=== PATIENT | male | born 1955 | race Caucasian/White ===

== ENCOUNTER 2017-04-05 18:43 | Emergency (ER) | payer MEDICAID ==
[2017-04-05 18:59] VITALS: BP 169/95; PULSE 78; RESP 16; TEMP 98.6; O2SAT 93
[2017-04-05] MEDS ORDERED: DIAZEPAM 5 MG TAB PO ONE (19:07)
--- NOTE | 2017-04-05 19:11 | EDPHY ---
H & P Stated Complaint: can only sleep 2-3 hours x 2 weeks. Time Seen by Provider: 04/05/17 19:02 HPI/ROS: CHIEF COMPLAINT: Insomnia HISTORY OF PRESENT ILLNESS: Patient is a 62-year-old man with unspecified mental health disorder who comes to the emergency department stating that he has not slept well for the last 3 days. He is requesting medication to help him sleep. At 1 point he has to take lithium but has not for several years. He denies depression or suicidality. He is not sure if he has been diagnosed with bipolar. He is not feel manic. It is not have racing thoughts. He denies recent drug or alcohol use. REVIEW OF SYSTEMS: Constitutional: denies: chills, fever, recent illness, recent injury EENTM: denies: blurred vision, double vision, nose congestion Respiratory: denies: cough, shortness of breath Cardiac: denies: chest pain, irregular heart rate, lightheadedness, palpitations Gastrointestinal/Abdominal: denies: abdominal pain, diarrhea, nausea, vomiting, blood streaked stools Genitourinary: denies: dysuria, frequency, hematuria, pain Musculoskeletal: denies: joint pain, muscle pain Skin: denies: lesions, rash, jaundice, bruising Neurological: denies: headache, numbness, paresthesia, tingling, dizziness, weakness Hematologic/Lymphatic: denies: blood clots, easy bleeding, easy bruising Immunologic/allergic: denies: HIV/AIDS, transplant EXAM: GENERAL: Well-appearing, well-nourished and in no acute distress. HEAD: Atraumatic, normocephalic. EYES: Pupils equal round and reactive to light, extraocular movements intact, sclera anicteric, conjunctiva are normal. ENT: TMs normal, nares patent, oropharynx clear without exudates. Moist mucous membranes. NECK: Normal range of motion, supple without lymphadenopathy or JVD. LUNGS: Breath sounds clear to auscultation bilaterally and equal. No wheezes rales or rhonchi. HEART: Regular rate and rhythm without murmurs, rubs or gallops. ABDOMEN: Soft, nontender, normoactive bowel sounds. No guarding, no rebound. No masses appreciated. BACK: No CVA tenderness, no spinal tenderness, step-offs or deformities EXTREMITIES: Normal range of motion, no pitting or edema. No clubbing or cyanosis. NEUROLOGICAL: Cranial nerves II through XII grossly intact. Normal speech, normal gait. 5/5 strength, normal movement in all extremities, normal sensation PSYCH: Frustrated, oriented SKIN: Warm, dry, normal turgor, no visible rashes or lesions. Source: Patient Exam Limitations: No limitations - Personal History Current Tetanus Diphtheria and Acellular Pertussis (TDAP): Yes Tetanus Vaccine Date: 2012 - Medical/Surgical History Hx Asthma: No Hx Chronic Respiratory Disease: No Hx Diabetes: No Hx Cardiac Disease: No Hx Renal Disease: No Hx Cirrhosis: No Hx Alcoholism: No Hx HIV/AIDS: No Hx Splenectomy or Spleen Trauma: No Other PMH: HX: SCHIZOPHERNIA, KNEE AND BACK SURGERY, COCAINE ADDICTION-SOBER PER PT SINCE 2012, GOUT - Family History Significant Family History: No pertinent family hx - Social History Smoking Status: Current every day smoker Alcohol Use: Sober Drug Use: None Constitutional: Initial Vital Signs Temperature (C) 37 C 04/05/17 18:57 Heart Rate 78 04/05/17 18:57 Respiratory Rate 16 04/05/17 18:57 Blood Pressure 169/95 H 04/05/17 18:57 O2 Sat (%) 93 04/05/17 18:57 O2 Delivery Mode Room Air Allergies/Adverse Reactions: propoxyphene HCl [From Darvon] Allergy (Verified 04/05/17 18:56) Home Medications: Medication Instructions Recorded Some Antibiotic? 04/05/17 Medical Decision Making ED Course/Re-evaluation: I will give the patient a dose of Valium to take at home tonight. I do feel that he would benefit greatly from a good night sleep. He will not take it with alcohol. He will then follow up with [facility] tomorrow. I also recommended the [facility] but he states that he does not want to drive all the way to [place]. Differential Diagnosis: Partial list of the Differential diagnosis considered include but were not limited to; insomnia, carla, schizophrenia, and although unlikely based on the history and physical exam, I also considered substance abuse, infection, head injury. I discussed these differential diagnoses and the plan with the patient as well as the usual and expected course. The patient understands that the diagnosis is provisional and that in medicine we are not always correct and that further workup is often warranted. Usual and customary warnings were given. All of the patient's questions were answered. The patient was instructed to return to the emergency department should the symptoms at all worsen or return, otherwise to followup with the physician as we discussed. Departure - Departure Disposition: Home, Routine, Self-Care Clinical Impression: Insomnia Qualifiers: Insomnia type: due to other mental disorder Qualified Code(s): F51.05 - Insomnia due to other mental disorder; F99 - Mental disorder, not otherwise specified Condition: Fair Instructions: Insomnia (ED) Referrals: ALEX ALMARAZ,Kathie [Primary Care Provider] - 1 day without fail
== END 2017-04-05 19:25 | disposition home or self-care (01) ==
LOC: CED 18:43
DX: F51.05 Insomnia due to other mental disorder (principal); F99 Mental disorder, not otherwise specified; F17.200 Nicotine dependence, unspecified, uncomplicated

== ENCOUNTER 2017-04-11 11:47 | Emergency (ER) | payer MEDICAID ==
[2017-04-11 12:03] VITALS: TEMP 98.4
[2017-04-11] MEDS ORDERED: NS 1,000 ML IV ONE (12:29)
--- NOTE | 2017-04-11 12:55 | CPEKG ---
Heart Rate: 92 RR Interval: 652 P-R Interval: 152 QRSD Interval: 92 QT Interval: 372 QTC Interval: 461 P Ola: 61 QRS Ola: 69 T Wave Ola: 39 EKG Severity - NORMAL ECG - EKG Impression: SINUS RHYTHM Electronically Signed By: Himanshu Blair 11-Apr-2017 14:47:25
[2017-04-11 13:03] LABS: % IMMATURE GRANULYOCYTES 0.4 % (0.0-1.1); ABSOLUTE IMMATURE GRANULOCYTES 0.02 10^3/uL (0.00-0.10); ADD DIFF? NO; ADD MORPH? NO; ADD SCAN? NO; ATYPICAL LYMPHOCYTE FLAG 30 (0-99); FRAGMENT RBC FLAG 0 (0-99); HEMATOCRIT 36.5 % (40.0-51.0); HEMOGLOBIN 12.6 g/dL (13.7-17.5); LEFT SHIFT FLG 0 (0-99); LIPEMIA HEMOLYSIS FLAG 90 (0-99); MEAN CELL HEMOGLOBIN 31.2 pg (27.9-34.1); MEAN CELL HEMOGLOBIN CONCENTR. 34.5 g/dL (32.4-36.7); MEAN CELL VOLUME 90.3 fL (81.5-99.8); MEAN PLATELET VOLUME 8.8 fL (8.7-11.7); PLATELET CLUMPS FLAG 0 (0-99); PLATELET COUNT 251 10^3/uL (150-400); RED BLOOD CELL COUNT 4.04 10^6/uL (4.40-6.38); RED CELL DISTRIBUTION WIDTH 13.4 % (11.5-15.2)
[2017-04-11 13:20] LABS: COLOR YELLOW; LEUKOCYTE ESTERASE,URINE NEGATIVE (NEGATIVE); NITRITE,URINE NEGATIVE (NEGATIVE); PH,URINE 6.5 (5.0-7.5)
[2017-04-11 13:21] LABS: ALANINE AMINOTRANSFERASE 77 IU/L (21-72); ALBUMIN 3.8 g/dL (3.5-5.0); ALKALINE PHOSPHATASE 61 IU/L (38-126); ANION GAP 10 mEq/L (8-16); ASPARTATE AMINOTRANSFERASE 59 IU/L (17-59); BILIRUBIN,TOTAL 0.6 mg/dL (0.1-1.4); CALCIUM 9.2 mg/dL (8.5-10.4); CARBON DIOXIDE 24 mEq/l (22-31); CHLORIDE 105 mEq/L (97-110); CREATININE 0.8 mg/dL (0.7-1.3); GLOMERULAR FILTRATION RATE > 60; GLUCOSE 103 mg/dL (70-100); POTASSIUM 4.2 mEq/L (3.5-5.2); SODIUM 139 mEq/L (134-144); TOTAL PROTEIN 6.7 g/dL (6.3-8.2)
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
[2017-04-11 13:56] VITALS: BP 118/78; PULSE 88; RESP 18; O2SAT 95
[2017-04-11 16:10] LABS: LITHIUM 1.1 mEq/L (0.6-1.2)
== END 2017-04-11 13:56 | disposition home or self-care (01) ==
LOC: CED 11:47
DX: R11.0 Nausea (principal); E86.9 Volume depletion, unspecified; F17.200 Nicotine dependence, unspecified, uncomplicated
CPT/HCPCS: 80053-PO; 81003-PO; 84443-PO; 85025-PO

== ENCOUNTER 2017-04-11 16:51 | Emergency (ER) | payer MEDICAID ==
[2017-04-11] MEDS ORDERED: IBUPROFEN 600 MG TAB PO ONE (17:06)
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
[2017-04-11 17:09] VITALS: BP 152/89; PULSE 96; RESP 16; TEMP 98.8; O2SAT 93
== END 2017-04-11 17:45 | disposition home or self-care (01) ==
LOC: CED 16:51
DX: S90.112A Contusion of left great toe without damage to nail, initial encounter (principal); F17.200 Nicotine dependence, unspecified, uncomplicated; V18.0XXA Pedal cycle driver injured in noncollision transport accident in nontraffic accident, initial encounter; Y92.89 Other specified places as the place of occurrence of the external cause; Y99.8 Other external cause status; Y93.55 Activity, bike riding
CPT/HCPCS: 73660-PO

== ENCOUNTER 2017-04-11 23:25 | Emergency (ER) | payer MEDICAID ==
[2017-04-11 23:31] VITALS: BP 158/87; PULSE 80; RESP 16; TEMP 98.2; O2SAT 97
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
[2017-04-12] MEDS ORDERED: LORAZEPAM 1 MG PREPACK#4 BTL TAKEHOME ONE (00:27)
== END 2017-04-12 00:42 | disposition home or self-care (01) ==
LOC: CED 23:25
DX: F20.9 Schizophrenia, unspecified (principal); F17.200 Nicotine dependence, unspecified, uncomplicated

== ENCOUNTER 2017-04-12 07:59 | Emergency (ER) | payer MEDICAID ==
[2017-04-12] MEDS ORDERED: ZIPRASIDONE MESYLATE 20 MG VIAL IM ONE (08:42)
--- NOTE | 2017-04-12 08:47 | EDPHY ---
H & P Stated Complaint: PT reports "not feeling right", states he "feels like he is being watched" Time Seen by Provider: 04/12/17 08:08 HPI/ROS: This patient is here for his 4th visit within the past 24 hours or so with increasing agitation with a history of schizophrenia. He complains that he is "shaky and not feeling well." He is compliant with his lithium with a therapeutic level yesterday of 1.1. Despite this he is becoming increasingly agitated. He was prescribed lorazepam last night visit here with Dr. Pinto, but he refuses to take Ativan. This morning he is more agitated. He brought a piece of metal that he found in the street and has delusions about the item pertaining to his ultimate fate & density. He is cursing and here this morning with mild motor agitation but is cooperative when reminded. He explains that he does not feel right. He reports that he uses marijuana to help slow him down , but admits that it is not working for for that purpose. ROS: No fevers no other constitutional symptoms HEENT: No complaints Pulmonary: No complaints cardiovascular: No complaints GI: No nausea this morning. Integumentary: No complaints Psychiatric: The patient only slept 3 hours last night. He arrived without his phone or wallet. Neuro: No symptoms 10 point ROS is otherwise negative. Source: Patient Exam Limitations: Clinical condition (Psychotic symptoms) - Personal History Current Tetanus Diphtheria and Acellular Pertussis (TDAP): Yes Tetanus Vaccine Date: 2012 - Medical/Surgical History PMH: Schizophrenia Hx Asthma: No Hx Chronic Respiratory Disease: No Hx Diabetes: No Hx Cardiac Disease: No Hx Renal Disease: No Hx Cirrhosis: No Hx Alcoholism: No Hx HIV/AIDS: No Hx Splenectomy or Spleen Trauma: No Other PMH: HX: SCHIZOPHERNIA, KNEE AND BACK SURGERY, COCAINE ADDICTION-SOBER PER PT SINCE 2012, GOUT - Social History Smoking Status: Heavy smoker Alcohol Use: None Drug Use: Marijuana (Daily) - Physical Exam Exam: General Appearance: Alert, no distress. Eyes: Pupils equal and round no pallor or injection. ENT, Mouth: Mucous membranes moist. Respiratory: There are no retractions, lungs are clear to auscultation. Cardiovascular: Regular rate and rhythm. Neurological: Alert with no focal deficits Skin: Warm and dry, no rashes. Musculoskeletal: Neck is supple nontender. Extremities are symmetrical, full range of motion. Psychiatric: Patient is agitated. He is cursing. He has flight of ideas this morning. He has paranoia with the idea of people are watching him. He denies any suicidal ideation or homicidal ideation. He does have some insight into his increasing agitation and says that he will accept a 2nd medication on top of the lithium to help with symptoms DIFFERENTIAL DIAGNOSIS: After history and physical exam differential diagnosis was considered for schizophrenia with exacerbation, potential relapse of cocaine use, marijuana abuse, agitated delirium Constitutional: Initial Vital Signs Temperature (C) 36.9 C 04/12/17 08:06 Heart Rate 88 04/12/17 08:06 Respiratory Rate 18 04/12/17 08:06 Blood Pressure 148/82 H 04/12/17 08:06 O2 Sat (%) 95 04/12/17 08:06 O2 Delivery Mode Room Air Allergies/Adverse Reactions: propoxyphene HCl [From Darvon] Allergy (Verified 04/12/17 08:10) Home Medications: Medication Instructions Recorded [place] Carbonate 04/11/17 Haloperidol [Haldol 5 MG (*)] 5 mg PO TID #100 tab 04/12/17 LORazepam [Ativan] 04/12/17 Medical Decision Making ED Course/Re-evaluation: I explained my concern about his escalating psychotic symptoms and recommended additional medication. He initially refused this and we called for police presence due do increasing agitation. Shortly after initially declining medication & requesting that I speak with family 1st (I called 3 contacts that he requested and left messages, but was unable to reach his niece, Aurelia - , his brother Renato - [phone], or Franco, or his ex- . I explained that I was unable to reach family and he then agrees to accept an additional medication. He agrees to have a dose of Geodon IM. 20 mg of Geodon is administered IM. Patient responds well to this. Within 10- 15 minutes he reports that he "can feel medication working." He agrees to start Haldol orally. He has an appointment to see [facility] and. He is appreciative of the medication dose and thanks us for caring for him. He then fell asleep. After sleeping for approximately an hour he awakens, is pleasant and cooperative, agrees to start Haldol 5 mg 3 times a day and to follow-up tomorrow with Alex Salomon. I spoke with police officers at 9:25 a.m. explaining the patient de escalated and is agreeable to appropriate treatment. I spoke with Dr. Lange, Alex [facility]onso on-call doc regarding the patient' s status of increasing symptoms with history of schizophrenia, compliant on the lithium but the started 6 days ago with plan to start Haldol in addition with close follow-up tomorrow. (and will pass on the information to the treating clinician he sees him tomorrow at [facility]. We also paged psychiatry on-call ([facility]) but have not heard back Discussion: Patient with history of schizophrenia with increasing symptoms and agitation the but not quite to the level of an M1 hold. Fortunately he accepted additional antipsychotic medication & responded well. - Data Points Medications Given: Discontinued Medications Ziprasidone (Geodon) 20 mg IM EDNOW ONE Stop: 04/12/17 08:43 Last Admin: 04/12/17 08:55 Dose: 20 mg Departure - Departure Disposition: Home, Routine, Self-Care Clinical Impression: Agitation Condition: Good Instructions: Schizophrenia (ED) Additional Instructions: Diagnosis: agitation Plan: Continue your lip p.m. at the current dose. Add Haldol 5 mg 3 times a day. [facility]. Go to the emergency department for any significant worsening despite the treatment plan Referrals: ALEX ALMARAZ,. [Primary Care Provider] - As per Instructions Prescriptions: Haloperidol [Haldol 5 MG (*)] 5 mg PO TID #100 tab
[2017-04-12 09:45] VITALS: BP 144/87; PULSE 78; RESP 16; TEMP 98.6; O2SAT 96
== END 2017-04-12 09:45 | disposition home or self-care (01) ==
LOC: CED 07:59
DX: R45.1 Restlessness and agitation (principal); F17.200 Nicotine dependence, unspecified, uncomplicated
CPT/HCPCS: J3486

== ENCOUNTER 2017-04-12 15:31 | Emergency (ER) | payer MEDICAID ==
[2017-04-12 15:44] VITALS: BP 138/100; PULSE 100; RESP 16; TEMP 98.6; O2SAT 95
--- NOTE | 2017-04-12 15:58 | EDPHY ---
General Time Seen by Provider: 04/12/17 15:52 Narrative: Patient left the emergency department before I could see and evaluate him. Because we were concerned about his mental status and agitation police were notified. - History Smoking Status: Heavy smoker - Objective Vital Signs: Initial Vital Signs Temperature (C) 37 C 04/12/17 15:42 Heart Rate 100 04/12/17 15:42 Respiratory Rate 16 04/12/17 15:42 Blood Pressure 138/100 H 04/12/17 15:42 O2 Sat (%) 95 04/12/17 15:42 O2 Delivery Mode Room Air Allergies/Adverse Reactions: propoxyphene HCl [From Darvon] Allergy (Verified 04/12/17 15:44) Home Medications: Medication Instructions Recorded [place] Carbonate 04/11/17 Haloperidol [Haldol 5 MG (*)] 5 mg PO TID #100 tab 04/12/17 LORazepam [Ativan] 04/12/17 Departure - Departure Referrals: ALEX ALMARAZ,Kathie [Primary Care Provider] - As per Instructions
== END 2017-04-12 15:57 | disposition left against medical advice (07) ==
LOC: CED 15:31
DX: Z53.21 Procedure and treatment not carried out due to patient leaving prior to being seen by health care provider (principal)

== ENCOUNTER 2017-04-12 17:15 | Emergency (ER) | payer MEDICAID ==
[2017-04-12 17:31] VITALS: BP 157/94; PULSE 113; TEMP 99
[2017-04-12] MEDS ORDERED: ZIPRASIDONE MESYLATE 20 MG VIAL IM PRN (17:31)
[2017-04-12 17:48] VITALS: RESP 18; O2SAT 97
--- NOTE | 2017-04-12 17:58 | EDPHY ---
H & P Stated Complaint: labile thoghts . states here " feels like he is overheated" Time Seen by Provider: 04/12/17 17:19 HPI/ROS: CHIEF COMPLAINT: "I need to drink water and to get cool" History by patient HISTORY OF PRESENT ILLNESS: 62-year-old male with a history of schizophrenia or bipolar disease who is on lithium presents for his 6th visit in 2 days to this facility. Patient was here approximately 2 hours ago but left without being seen. He returns very agitated stating he just needs to cool down and have some water. 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 Patient is denying suicidal ideation or audio or visual hallucinations. He is denying any drug use other than marijuana. REVIEW OF SYSTEMS: Unobtainable due the patient's agitation Source: Patient - Personal History Current Tetanus Diphtheria and Acellular Pertussis (TDAP): Yes Tetanus Vaccine Date: 2012 - Medical/Surgical History Hx Asthma: No Hx Chronic Respiratory Disease: No Hx Diabetes: No Hx Cardiac Disease: No Hx Renal Disease: No Hx Cirrhosis: No Hx Alcoholism: No Hx HIV/AIDS: No Hx Splenectomy or Spleen Trauma: No Other PMH: HX: SCHIZOPHERNIA, KNEE AND BACK SURGERY, COCAINE ADDICTION-SOBER PER PT SINCE 2012, GOUT - Social History Smoking Status: Heavy smoker - Physical Exam Exam: General Appearance: Alert, agitated. Eyes: Pupils equal and round no pallor or injection. ENT, Mouth: Mucous membranes moist. Respiratory: Normal, effort, There are no retractions, lungs are clear to auscultation. Cardiovascular: Regular rate and rhythm. Gastrointestinal: Abdomen is soft and nontender, no masses, bowel sounds normal. Neurological: Awake, alert and oriented x 3, no pronator drift, normal gait, no pronator drift Skin: Warm and dry, no rashes. Musculoskeletal: Neck is supple nontender. Extremities are symmetrical, full range of motion. 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 and that people are after him, no suicidal or homicidal ideation, no hallucinations Constitutional: Initial Vital Signs Temperature (C) 37.2 C 04/12/17 17:28 Heart Rate 113 H 04/12/17 17:28 Respiratory Rate 16 04/12/17 17:28 Blood Pressure 157/94 H 04/12/17 17:28 O2 Sat (%) 94 04/12/17 17:28 O2 Delivery Mode Room Air Allergies/Adverse Reactions: propoxyphene HCl [From Darvon] Allergy (Verified 04/12/17 15:44) Home Medications: Medication Instructions Recorded [place] Carbonate 04/11/17 Haloperidol [Haldol 5 MG (*)] 5 mg PO TID #100 tab 04/12/17 LORazepam [Ativan] 04/12/17 Medical Decision Making ED Course/Re-evaluation: 62-year-old man psychiatric history presents agitated and delusional after several escalating assisted emerged from under the past 48 hours. Patient was seen earlier today and I reviewed those records he was given a dose of Geodon at that time and slept, was not felt to be candidate for mental health hold and discharged however here the patient is clearly delusional, uncooperative and gravely disabled. Patient attempted to pull out a marijuana pipe and smoking in the ED in front of the police. My plan was to put the patient on a mental health hold, however the police stated they would put him on a hold and take him to [facility]. I discussed the case with Dr. Cherry at [facility] who accepted the patient transfer. The patient did agree to a dose of Geodon 20 mg IM prior to transfer which he was given. - Data Points Medications Given: Discontinued Medications Ziprasidone (Geodon) 20 mg IM Q4HRS PRN PRN Reason: Agitation Stop: 10/09/17 17:30 Last Admin: 04/12/17 17:40 Dose: 20 mg Departure - Departure Disposition: Acute Care Hospital Not [facility] Clinical Impression: Acute psychosis, Schizophrenia, paranoid, chronic with acute exacerbation Condition: Fair Referrals: ALEX ALMARAZ,. [Primary Care Provider] - As per Instructions
== END 2017-04-12 17:45 | disposition short-term general hospital (02) ==
LOC: CED 17:15
DX: F20.0 Paranoid schizophrenia (principal); F17.200 Nicotine dependence, unspecified, uncomplicated
CPT/HCPCS: J3486

== ENCOUNTER 2017-05-07 01:14 | Emergency (ER) | payer MEDICAID ==
[2017-05-07 01:34] VITALS: BP 131/93; PULSE 107; RESP 20; TEMP 98.6; O2SAT 94
[2017-05-07] MEDS ORDERED: HYDROCODONE/APAP 5/325 TAB PO ONE (01:43)
--- NOTE | 2017-05-07 01:50 | EDPHY ---
H & P Time Seen by Provider: 05/07/17 01:22 HPI/ROS: CC: Pain HPI: This 62 y/o male with PMH including bipolar disorder and schizophrenia presents to the ED stating that when he was discharged from [facility] yesterday afternoon they forgot to prescribe him pain medication. Now he can't sleep. He is not very specific as to where his pain is but he states he walks a lot and his feet ache. He brings a folder with all his paperwork from his discharge and it lists an appointment with [facility] at [address] [place] [address] at 9:00am today. The patient seems quite agitated at arrival. He states he has taken all the medications listed on his discharge as direction (Zyprexa, Cogentin, [place], Seroquel). Although he states he is having trouble sleeping, he is drinking a large cup of coffee. He denies other complaints. Past Medical/Surgical History: PMH: Bipolar disordoer, type II; Manic with Psychosis and Anxiety/Severe; Schizophrenia; cannabis use disorder Allergies: Propoxyphene Medications (per printed list from discharge summary from [facility]): Zyprexa Zydis 10 mg 9:00 a.m. Zyprexa Zydis 20 mg at 9:00 p.m. Cogentin 1 mg twice a day [place] carbonate 600 mg twice a day Seroquel XR 400 mg at bedtime Social History: Lives with a friend; States and kids live in [place]; +Tobacco; Denies ETOH; h/o cannabis use d/o; Works in construction. Smoking Status: Heavy smoker Physical Exam: General: Alert and Oriented x 3; agitated; adequately groomed and dressed EXAM LIMITED BY PATIENT DOES NOT WANT TO BE TOUCHED Skin: normal for ethnicity; dry; non-diaphoretic HEENT: Normocephalic, atraumatic, pupils equally round and reactive, extraocular muscles intact, mucosa moist Neck: Supple, full range of motion without difficulty Cardiovascular: Normal peripheral perfusion Pulmonary: Nonlabored respirations Extremities: No clubbing, cyanosis or edema; has heavy work boots on and will not take them off for exam Neuro: Nonfocal Psych: Agitated at times and slightly pressured speech; Able to be redirected Constitutional: Initial Vital Signs Temperature (C) 98.6 F 05/07/17 01:25 Heart Rate 107 H 05/07/17 01:25 Respiratory Rate 20 05/07/17 01:25 Blood Pressure 131/93 H 05/07/17 01:25 O2 Sat (%) 94 05/07/17 01:25 O2 Delivery Mode Room Air Allergies/Adverse Reactions: propoxyphene HCl [From Darvon] Allergy (Verified 05/07/17 01:25) Home Medications: Medication Instructions Recorded [place] Carbonate 04/11/17 Cogentin 05/07/17 Seroquel 05/07/17 Zyprexa 05/07/17 Medical Decision Making ED Course/Re-evaluation: The patient was seen and examined, vital signs reviewed. Discharge paperwork from his discharge yesterday from [facility] were reviewed. Prior [facility] records reviewed. He requested something to eat. We gave him Cisco crackers, peanut butter and whole milk at his request. He was much more calm after eating. He was cooperative and was able to be redirected off of topics that agitated him. He was advised that we do not prescribe narcotic pain medications for chronic pain and if he felt this was an oversight at his discharge that he should talk to the physician he is going to see this morning. We agreed that we would give him 2 tablets of [place] that he will take after he gets home as he is driving/walking. He is satisfied with this plan. As stated previously the patient was discharged at about noon yesterday from [facility]. He states he is taking his medications as prescribed. I believe his psychiatric condition is at baseline at this time. Differential Diagnosis: Differential diagnosis includes but is not limited to chronic pain, narcotic seeking, bipolar disorder, psychosis, injury or infection. - Data Points Medications Given: Discontinued Medications Hydrocodone Bitart/Acetaminophen ([place] 5/325) 2 tab PO EDNOW ONE Stop: 05/07/17 01:44 Last Admin: 05/07/17 01:49 Dose: 2 tab Departure - Departure Disposition: Home, Routine, Self-Care Clinical Impression: Chronic pain, History of bipolar disorder, History of psychiatric disorder Condition: Good Instructions: Chronic Pain (ED) Additional Instructions: If you feel you need chronic pain medications, please discuss this with your primary care providers. We do not prescribe chronic narcotic pain medications from the Emergency Department. Please keep your appointment with your mental health provider tomorrow (your discharge papers from [facility] state you have an appointment at [facility] at [address] [facility] in [place] at 9a.m.). Feel free to return to the ED if you have any medical or psychiatric conditions that we can help you with. Referrals: Patient,NotPresent [Primary Care Provider] - As per Instructions
== END 2017-05-07 02:35 | disposition home or self-care (01) ==
LOC: CED 01:14
DX: G89.29 Other chronic pain (principal); F17.200 Nicotine dependence, unspecified, uncomplicated; Z86.59 Personal history of other mental and behavioral disorders

== ENCOUNTER 2017-05-07 08:34 | Emergency (ER) | payer MEDICAID | END 2017-05-07 08:35 | disposition left against medical advice (07) | LOC: CED 08:34 | DX: Z53.21 Procedure and treatment not carried out due to patient leaving prior to being seen by health care provider (principal) ==

== ENCOUNTER 2017-05-07 14:28 | Emergency (ER) | payer MEDICAID ==
[2017-05-07 14:39] VITALS: BP 127/90; PULSE 76; RESP 18; TEMP 97.7; O2SAT 98
--- NOTE | 2017-05-07 14:46 | EDPHY ---
PA Addendum - Addendum .: This patient left the emergency department before completing evaluation.
== END 2017-05-07 14:48 | disposition left against medical advice (07) ==
LOC: CED 14:28
DX: Z53.21 Procedure and treatment not carried out due to patient leaving prior to being seen by health care provider (principal)

== ENCOUNTER 2017-05-09 06:49 | Emergency (ER) | payer MEDICAID ==
[2017-05-09 06:56] VITALS: BP 139/85; PULSE 77; RESP 16; TEMP 97.5; O2SAT 92
[2017-05-09] MEDS ORDERED: IBUPROFEN 600 MG TAB PO ONE (07:00)
--- NOTE | 2017-05-09 07:00 | EDPHY ---
H & P Time Seen by Provider: 05/09/17 06:53 HPI/ROS: CHIEF COMPLAINT: Toe pain HISTORY OF PRESENT ILLNESS: Patient was wearing boots which rubbed 1 of his toes and caused a blister which is now popped. He said it is very painful when he is wearing shoes. REVIEW OF SYSTEMS: No fever PAST MEDICAL HISTORY: Medical consultation dated 04/08/2014 personally reviewed. Includes sciatica, back and knee surgeries, hepatitis-C. Schizophrenia. Social history: Smoker. General Appearance: Alert and conversant, cooperative. The patient has a blister on his left middle toe over the proximal joint which has popped. There is no fluctuance or eschar. There is no surrounding redness or proximal lymphangitis. The patient has normal motor and sensory in the foot. The plantar surface is intact. Emergency Department course/MDM: Patient has a blister which is causing him pain when it rubs against his shoe. Antibiotic ointment and a Band-Aid were applied. I don't think it's likely that he has superficial or deep space infection. Smoking Status: Heavy smoker Constitutional: Initial Vital Signs Temperature (C) 36.4 C 05/09/17 06:50 Heart Rate 77 05/09/17 06:50 Respiratory Rate 16 05/09/17 06:50 Blood Pressure 139/85 H 05/09/17 06:50 O2 Sat (%) 92 05/09/17 06:50 O2 Delivery Mode Room Air Allergies/Adverse Reactions: propoxyphene HCl [From Darvon] Allergy (Verified 05/09/17 06:56) Home Medications: Medication Instructions Recorded NK [No Known Home Meds] 05/09/17 MDM/Departure - MDM Medications Given: Discontinued Medications Ibuprofen (Motrin) 600 mg PO EDNOW ONE Stop: 05/09/17 07:01 Last Admin: 05/09/17 07:04 Dose: 600 mg - Depart Disposition: Home, Routine, Self-Care Clinical Impression: blister left middle toe Condition: Good Instructions: Acute Wounds (ED) Referrals: ALEX ALMARAZ,. [Primary Care Provider] - As per Instructions
== END 2017-05-09 07:04 | disposition home or self-care (01) ==
LOC: CED 06:49
DX: R23.8 Other skin changes (principal); F17.200 Nicotine dependence, unspecified, uncomplicated

== ENCOUNTER 2017-05-11 11:47 | Emergency (ER) | payer MEDICAID | END 2017-05-11 12:04 | disposition left against medical advice (07) | LOC: CED 11:47 | DX: Z53.21 Procedure and treatment not carried out due to patient leaving prior to being seen by health care provider (principal) ==

== ENCOUNTER 2017-05-16 20:07 | Emergency (ER) | payer MEDICAID ==
[2017-05-16 20:26] VITALS: BP 140/100; PULSE 79; RESP 16; O2SAT 95
--- NOTE | 2017-05-16 20:28 | EDPHY ---
H & P Time Seen by Provider: 05/16/17 20:19 HPI/ROS: 62-year-old male with history of bipolar and schizophrenia presents requesting narcotics for his chronic back pain. Patient states he has a history of hepatitis-C and therefore cannot take acetaminophen. I told him I will not be able to prescribe narcotics, that he will need to get this medicine through his PCP. Review of systems As per HPI General no fever no chills no weakness HEENT no eye pain no eye discharge. No eye redness, no sore throat Respiratory no cough, no shortness of breath Cardiac no chest pain, no peripheral edema GI no abdominal pain, no diarrhea, no constipation, no nausea, no vomiting no flank pain, no hematuria, no dysuria Musculoskeletal positive myalgias, no joint pain Heme no easy bruising, no easy bleeding Endo no polyuria, no polydipsia Skin no rashes, no pruritus Neuro no syncope, no dizziness, no headaches Psych is no suicidal ideation, no homicidal ideation Past Medical/Surgical History: bipolar, schizophrenia, hepatitis-C Social History: noncontributory Smoking Status: Heavy smoker Physical Exam: 62-year-old male Alert and oriented in no acute distress nontoxic appearance, afebrile Atraumatic normocephalic Neck no JVD Lungs clear to auscultation, no respiratory distress Heart regular rate and rhythm Extremities no cyanosis clubbing edema neuro alert, gait intact, no motor deficits Constitutional: Initial Vital Signs Heart Rate 79 05/16/17 20:10 Respiratory Rate 16 05/16/17 20:10 Blood Pressure 140/100 H 05/16/17 20:10 O2 Sat (%) 95 05/16/17 20:10 O2 Delivery Mode Room Air O2 (L/minute) 36.6 Allergies/Adverse Reactions: propoxyphene HCl [From Darvon] Allergy (Verified 05/09/17 06:56) Home Medications: Medication Instructions Recorded 2 Other Psych Meds 05/16/17 [place] Carbonate 05/16/17 [place] 5/325 (*) 05/16/17 Medical Decision Making ED Course/Re-evaluation: patient seen and evaluation begun patient stated he only needed narcotics refused narcotics tonight patient discharged states he plans to go to another ER, specifically likely a [facility] Departure - Departure Disposition: Home, Routine, Self-Care Clinical Impression: Drug-seeking behavior Condition: Good Instructions: Chronic Pain (ED) Referrals: JAMISON ROBERTS [Primary Care Provider] - As per Instructions
== END 2017-05-16 20:28 | disposition home or self-care (01) ==
LOC: CED 20:07
DX: Z76.5 Malingerer [conscious simulation] (principal); F17.200 Nicotine dependence, unspecified, uncomplicated

== ENCOUNTER 2017-05-17 05:31 | Emergency (ER) | payer MEDICAID ==
[2017-05-17 06:02] VITALS: BP 141/75; PULSE 78; RESP 16; TEMP 97.5; O2SAT 95
--- NOTE | 2017-05-17 06:05 | EDPHY ---
H & P Time Seen by Provider: 05/17/17 05:46 HPI/ROS: CC: "I need pain medications and I can't see my doctor until Thursday." HPI: This 62-year-old male known to me from prior visits with past medical history including bipolar disorder and schizophrenia presents to the ED by POV stating that he needs narcotic pain medications for his chronic pain. He was seen at this facility yesterday for the same issue and at another outside facility since that time. He has had multiple visits seeking narcotic pain medications. When I saw the patient on May 07, 2017 he had just been discharged from [facility] 12 hours previously and he said they forgot to prescribe him his pain medication. He was requesting pain medications at that visit as well. His discharge paperwork from [facility] that he brought with him said he had an appointment that morning and I advised him that he needed to discuss chronic pain medications with his primary care provider. He was given 2 [place] on that visit on said he would talk to his primary. He is not complaining of any specific pain on this visit just saying that he has run out of pain medication, no one will prescribe it for him, and he cannot see his primary care provider until Thursday (which is tomorrow). REVIEW OF SYSTEMS: Constitutional: No fever or chills apparent. Eyes: No discharge apparent. ENT: No throat pain apparent. Respiratory: No cough, no shortness of breath apparent. Neuro: No extrapyramidal symptoms apparent; normal steady gait; no musculoskeletal asymmetry apparent. Past Medical/Surgical History: Past medical history includes bipolar disorder type 2, manic with psychosis and severe anxiety, schizophrenia, cannabis use disorder Allergies: Propoxyphene Medications per the patient's prior medical record transcribed directly from his discharge summary from [facility] from his visit May 07, 2017: Zyprexa Zydis 10 mg at 9:00 a.m. Zyprexa Zydis 20 mg at 9:00 p.m. Cogentin 1 mg twice a day [place] carbonate 600 mg twice a day Seroquel XR 400 mg at bedtime Social History: Social history taken from my prior visit with this patient a week ago: The patient lives with a friend; states his and children live in [place]; he smokes tobacco daily; he denies alcohol use; he has a history of cannabis use disorder; works in construction. Smoking Status: Heavy smoker Physical Exam: From observation as patient would not stay for complete physical exam. General: Alert and oriented x3, agitated, adequately groomed and dressed appropriately, speaks in full sentences Skin: Normal color for ethnicity, non diaphoretic. No apparent rashes HEENT: Normocephalic, atraumatic, pupils equally round, extraocular movements intact, oropharynx with moist mucosa Neck: Supple with full range of motion, no JVD Cardiovascular: Appears to have normal peripheral perfusion Lungs: Nonlabored respirations Extremities: Moves all extremities well with full range of motion Neuro: Cranial nerves 2 through 12 grossly intact, nonfocal exam by observation Psych: Agitated, no hallucinatory symptoms apparent Allergies/Adverse Reactions: propoxyphene HCl [From Darvon] Allergy (Verified 05/09/17 06:56) Home Medications: Medication Instructions Recorded 2 Other Psych Meds 05/16/17 [place] Carbonate 05/16/17 [place] 5/325 (*) 05/16/17 Medical Decision Making ED Course/Re-evaluation: The patient was seen and evaluated, vital signs reviewed. Prior records were reviewed as well. It was confirmed that he was seen at [facility] earlier and was belligerent with staff and walked out. Reportedly the police were called who found him on premises and escorted him home. Today when the patient saw me he recognized me from his prior visit at which time I had given him 2 [place] tablets and said "oh, good." He started telling me about running out of his pain medications and having chronic pain. He had no specific pain. He said no one would prescribe him pain medications and he would not be able to see his provider until tomorrow. When I reminded him at our last visit I advised him that we do not prescribe chronic narcotic pain medications and that all further narcotic pain medications needed to come from his primary care provider he again stated but he could not get in until tomorrow. I told him that that was our policy. He said he will just keep coming back or going to other facilities until someone would prescribe him something. I offered him a non-narcotic pain medication and he said he "didn't want any of those pussy pills." The patient then grabbed his pill bottles, put a cigarette in his mouth and walked out of the ED without further evaluation or discharge paperwork. I do know from his prior visit that listed on his discharge paperwork his follow-up appointment after discharge from [facility] was at [facility] at [address] [place] [address] in [place]. At that time the patient states he has another provider that he liked better and was going to follow up with her. I do not remember that provider's name. Differential Diagnosis: Includes but is not limited to: Narcotic seeking behavior; acute Pain; chronic pain; medication noncompliance; schizophrenia/bipolar. Departure - Departure Disposition: Home, Routine, Self-Care Clinical Impression: Narcotic abuse, Narcotic dependence, Chronic pain, History of schizophrenia, History of bipolar disorder Condition: Good Additional Instructions: Patient left without waiting for discharge paperwork.
== END 2017-05-17 05:52 | disposition home or self-care (01) ==
LOC: CED 05:31
DX: F11.20 Opioid dependence, uncomplicated (principal); G89.29 Other chronic pain; F17.200 Nicotine dependence, unspecified, uncomplicated; Z86.59 Personal history of other mental and behavioral disorders